=== PATIENT | female | born 2000 | race Caucasian/White ===

== ENCOUNTER → 2021-03-15 | Outpatient (CLI) | payer OTHER | LOC: KOH-I 13:30 | DX: M25.571 Pain in right ankle and joints of right foot (principal); M79.671 Pain in right foot | CPT/HCPCS: 73610; 73630 ==

== ENCOUNTER → 2021-04-03 | Outpatient (CLI) | payer OTHER | LOC: KOH-I 12:44 | DX: M79.671 Pain in right foot (principal); G89.29 Other chronic pain | CPT/HCPCS: 73718 ==